=== PATIENT | male | born 1980 | race American Indian/Alaskan Native ===

== ENCOUNTER 2019-03-06 12:00 | Emergency (ER) | payer BC, OTHER ==
[2019-03-06 12:07] VITALS: BP 176/103
--- NOTE | 2019-03-06 12:13 | Event Note ---
ED Screening Note Date of service: 03/06/19 Time: 12:11 ED Screening Note: 38 y o presents with right knee pain with pain with walking unsure of injury, scooter mechanic works on cars This initial assessment/diagnostic orders/clinical plan/treatment(s) is/are subject to change based on patients health status, clinical progression and re- assessment by fellow clinical providers in the ED. Further treatment and workup at subsequent clinical providers discretion. Patient/guardian urged not to elope from the ED as their condition may be serious if not clinically assessed and managed. Initial orders include: xr acc eval pain control, knee brace vs nazanin wrp ortho referral- MRI
== END 2019-03-06 18:46 | disposition left against medical advice (07) ==
LOC: ED 12:00
DX: M25.561 Pain in right knee (principal); Z53.21 Procedure and treatment not carried out due to patient leaving prior to being seen by health care provider